=== PATIENT | female | born 1985 | race Caucasian/White ===

== ENCOUNTER 2020-12-08 06:43 | Emergency (ER) | payer OTHER ==
[~2020-12-08] VITALS: Ht 172.7 cm; Wt 82.0 kg
[2020-12-08 07:34] LABS: BASOPHILS % 0.7 % (0.0-2.0); EOSINOPHILS % 0.9 % (0.0-5.0); HEMATOCRIT. 30.6 % (36.0-48.0); HEMOGLOBIN. 9.1 g/dL (12.0-16.0); LYMPHOCYTES % 25.1 % (20.0-50.0); MEAN CORPUSCULAR HEMOGLOBIN 20.1 pg (28.0-32.0); MEAN CORPUSCULAR VOLUME 67.8 fL (81.0-99.0); MONOCYTES % 8.2 % (2.0-8.0); NEUTROPHILS % 65.1 % (40.0-76.0); PLATELET 455 x1000/uL (130-400); RED BLOOD CELL COUNT 4.51 mill/uL (4.2-5.4); RED CELL DISTRIBUTION WIDTH 20.3 % (11.6-14.6)
[2020-12-08 07:41] LABS: CHLORIDE 108 mEq/L (98-107)
[2020-12-08 07:45] LABS: ETHANOL BLOOD 177 mg/dL
[2020-12-08 08:24] LABS: PLATELET ESTIMATE INCREASED
[2020-12-08] MEDS ORDERED: POTASSIUM CHLORIDE 20MEQ TABLET SR PO ONE (10:45)
[2020-12-08 12:55] LABS: CLARITY URINE CLEAR (CLEAR); COLOR URINE YELLOW (YELLOW); KETONES URINE NEGATIVE (NEGATIVE); LEUKOCYTE ESTERASE URINE 1+ (NEGATIVE); NITRITE URINE POSITIVE (NEGATIVE); OCCULT BLOOD URINE NEGATIVE (NEGATIVE); PROTEIN URINE TRACE (NEGATIVE); SPECIFIC GRAVITY URINE 1.017 (1.005-1.030); UROBILINOGEN URINE 0.2 E.U./dL (0.2-1.0)
[2020-12-08 13:30] VITALS: BP 110/80
[2020-12-08 13:31] LABS: *BARBITURATES SCREEN URINE NEGATIVE (NEGATIVE); *BENZODIAZEPINES SCREEN URINE NEGATIVE (NEGATIVE); *COCAINE SCREEN URINE NEGATIVE (NEGATIVE)
[2020-12-08 13:33] LABS: METHADONE URINE SCREEN NEGATIVE (NEGATIVE); OPIATES URINE SCREEN NEGATIVE (NEGATIVE)
[2020-12-08 13:40] LABS: *AMPHETAMINES SCREEN URINE PRESUMTIVE POSITIVE (NEGATIVE); CANNABINOID URINE SCREEN PRESUMTIVE POSITIVE (NEGATIVE); PHENCYCLIDINE URINE SCREEN PRESUMTIVE POSITIVE (NEGATIVE)
== END 2020-12-08 13:48 | disposition home or self-care (01) ==
LOC: ER 06:43
DX: R41.82 Altered mental status, unspecified (principal); F10.129 Alcohol abuse with intoxication, unspecified; E87.6 Hypokalemia; Z20.822 Contact with and (suspected) exposure to COVID-19; Y90.9 Presence of alcohol in blood, level not specified
CPT/HCPCS: 36415; 70450; 80053; 80305; 80307; 80320; 80329; 81003; 81025; 82140; 82962; 85025; 87086; 99284; C9803; U0003; U0005; G0480